=== PATIENT | male | born 1990 | race African-American/Black ===

== ENCOUNTER 2018-07-27 21:18 | Emergency (ER) | payer SELFPAY ==
[~2018-07-27] VITALS: Ht 180.3 cm; Wt 79.4 kg
[2018-07-27 21:50] VITALS: BP 114/78
--- NOTE | 2018-07-27 22:08 | RAD ---
CHEST PA LATERAL CLINICAL INDICATION: Cough COMPARISON: None FINDINGS: Heart is normal in size. Mild central bilateral peribronchial wall thickening. No focal consolidation. No pneumothorax or pleural effusion. Visualized bony thorax within normal limits. IMPRESSION: Mild bronchitis. Electronically signed by: Maurilio Majano DO (07/27/2018 10:05 PM) [facility]
[2018-07-27] MEDS ORDERED: PRED50TA PO (22:48)
[2018-07-27] MEDS ORDERED: VENTOLIN HFA18 GM INH (22:48)
[2018-07-27] MEDS ORDERED: BENZ100C PO (22:48)
--- NOTE | 2018-07-27 22:48 | PHYS DOC ---
Past Medical History Past Medical History: No Pertinent History Past Surgical History: No Surgical History Alcohol Use: None Drug Use: None Adult General Chief Complaint Chief Complaint: COUGH HPI HPI Patient is a 27 year old male with history of smoking who presents to the ED today complaining over productive cough for couple days. Denies any fever. Denies any nausea vomiting. Denies any chest pain or shortness of breath. Review of Systems Review of Systems Constitutional: Denies fever or chills [] Eyes: Denies change in visual acuity, redness, or eye pain [] HENT: Denies nasal congestion or sore throat [] Respiratory: Reports productive cough, denies shortness of breath [] Cardiovascular: No additional information not addressed in HPI [] GI: Denies abdominal pain, nausea, vomiting, bloody stools or diarrhea [] : Denies dysuria or hematuria [] Musculoskeletal: Denies back pain or joint pain [] Integument: Denies rash or skin lesions [] Neurologic: Denies headache, focal weakness or sensory changes [] All other systems were reviewed and found to be within normal limits, except as documented in this note. Allergies Allergies Allergies Coded Allergies Type Severity Reaction Last Updated Verified Penicillins Allergy Intermediate Hives 07/27/18 Yes Physical Exam Physical Exam Constitutional: Well developed, well nourished, no acute distress, non-toxic appearance. [] HENT: Normocephalic, atraumatic, bilateral external ears normal, oropharynx moist, no oral exudates, nose normal. [] Eyes: PERRLA, EOMI, conjunctiva normal, no discharge. [] Neck: Normal range of motion, no tenderness, supple, no stridor. [] Cardiovascular:Heart rate regular rhythm, no murmur [] Lungs & Thorax: Bilateral breath sounds clear to auscultation [] Abdomen: Bowel sounds normal, soft, no tenderness, no masses, no pulsatile masses. [] Skin: Warm, dry, no erythema, no rash. [] Back: No tenderness, no CVA tenderness. [] Extremities: No tenderness, no cyanosis, no clubbing, ROM intact, no edema. [] Neurologic: Alert and oriented X 3, normal motor function, normal sensory function, no focal deficits noted. [] Psychologic: Affect normal, judgement normal, mood normal. [] Current Patient Data Vital Signs Vital Signs Date Time Temp Pulse Resp B/P (MAP) Pulse Ox O2 Delivery O2 Flow Rate FiO2 07/27/18 21:50 98.6 86 17 114/78 (90) 98 Room Air 98.6 EKG EKG [] Radiology/Procedures Radiology/Procedures [] Course & Med Decision Making Course & Med Decision Making Pertinent Labs and Imaging studies reviewed. (See chart for details) This is a 27-year-old male patient presenting to the ED today complaining of a cough for couple days. Chest x-ray interpreted by radiologist was noted for bronchitis. Patient is in no distress. Symptoms are likely viral bronchitis. Discharged with albuterol inhaler, Tessalon pearls, prednisone. Encouraged to consider smoking cessation. Follow-up with the PCP in 1-2 weeks. [place] Disclaimer Dragon Disclaimer This electronic medical record was generated, in whole or in part, using a voice recognition dictation system. Departure Departure Impression: Primary Impression: Bronchitis Additional Impression: Smoking addiction Disposition: 01 HOME, SELF-CARE Condition: STABLE Referrals: NO PCP (PCP) Follow up with the primary care doctor in 1-2 weeks Patient Instructions: Acute Bronchitis, [id number], Smoking Cessation Additional Instructions: You were evaluated in the emergency room and noted to have acute bronchitis. Please consider smoking cessation, take the prescribed medications as ordered. Establish care with a primary care doctor and follow-up as an outpatient. Scripts Benzonatate (TESSALON PERLE) 100 Mg Capsule 1 CAP PO TID, #30 CAP Prov: DAVE ESCOBAR APRN 07/27/18 Albuterol Sulfate (VENTOLIN HFA INHALER) 18 Gm Hfa.aer.ad 2 PUFF INH Q4HRS for FOR ASTHMA, #1 INHALER 0 Refills Prov: DAVE ESCOBAR APRN 07/27/18 Prednisone (PREDNISONE) 50 Mg Tablet 1 TAB PO DAILY, #5 TAB Prov: DAVE ESCOBAR APRN 07/27/18 Problem Qualifiers DAVE ESCOBAR APRN July 27, 2018 22:48
== END 2018-07-27 22:55 | disposition home or self-care (01) ==
LOC: ER 21:18
DX: J40 Bronchitis, not specified as acute or chronic (principal); F17.200 Nicotine dependence, unspecified, uncomplicated; Z88.0 Allergy status to penicillin
CPT/HCPCS: 71046; 99284

== ENCOUNTER 2018-08-18 17:52 | Emergency (ER) | payer SELFPAY ==
[~2018-08-18] VITALS: Ht 180.3 cm; Wt 79.4 kg
[~2018-08-18 17:52] MED LIST: BENZ100C PO; PRED50TA PO; VENTOLIN HFA18 GM INH
[2018-08-18 18:01] VITALS: BP 123/66
[2018-08-18] MEDS ORDERED: SULF1TAB24 PO (18:31)
--- NOTE | 2018-08-18 18:31 | PHYS DOC ---
Past Medical History Past Medical History: No Pertinent History (ADRIANA ZHU APRN) Past Surgical History: No Surgical History (ADRIANA ZHU APRN) Alcohol Use: None Drug Use: None (ADRIANA ZHU APRN) Adult General Chief Complaint Chief Complaint: OTHER COMPLAINTS HPI HPI Patient is a 28 year old AA male who presents to the ER with complaints of R 4th digit pain and swelling at the distal aspect of his finger for the last 3 days. Pt denies any known injury. He denies any drainage from the site. (ADRIANA ZHU APRN) Review of Systems Review of Systems Constitutional: Denies fever or chills [] Musculoskeletal: Denies back pain or joint pain [] Integument: See HPI Neurologic: Denies headache, focal weakness or sensory changes [] (ADRIANA ZHU APRN) Allergies Allergies Allergies Coded Allergies Type Severity Reaction Last Updated Verified Penicillins Allergy Intermediate Hives 07/27/18 Yes (EFREN GOTTLIEB DO) Physical Exam Physical Exam Constitutional: Well developed, well nourished, no acute distress, non-toxic appearance. [] HENT: Normocephalic, atraumatic, bilateral external ears normal, nose normal. [] Eyes: conjunctiva normal, no discharge. [] Neck: Normal range of motion, no stridor. [] Lungs & Thorax: Respirations even and unlabored, no retractions, no respiratory distress Skin: Warm, dry; mild erythema and swelling to the distal aspect of right hand fourth digit nail bed consistent with paronychia Extremities: No cyanosis, no clubbing, ROM intact Neurologic: Alert and oriented X 3, normal motor function, normal sensory function, no focal deficits noted. [] Psychologic: Affect normal, judgement normal, mood normal. [] (ADRIANA ZHU APRN) Current Patient Data Vital Signs Vital Signs Date Time Temp Pulse Resp B/P (MAP) Pulse Ox O2 Delivery O2 Flow Rate FiO2 08/18/18 18:01 98.1 74 16 123/66 (85) 98 Room Air 98.1 (EFREN GOTTLIEB DO) EKG EKG [] (ADRIANA ZHU APRN) Radiology/Procedures Radiology/Procedures []The right fourth digit was cleansed with alcohol and a 21-gauge needle was used to lift the cuticle from the nail bed, in moderate amount of yellow pus was drained from the affected finger. No complications, patient tolerated procedure well. (ADRIANA ZHU APRN) Course & Med Decision Making Course & Med Decision Making Pertinent Labs and Imaging studies reviewed. (See chart for details) [] (ADRIANA ZHU APRN) Dragon Disclaimer Dragon Disclaimer This electronic medical record was generated, in whole or in part, using a voice recognition dictation system. (ADRIANA ZHU APRN) Departure Departure Impression: Primary Impression: Paronychia of finger of right hand Disposition: HOME, SELF-CARE Condition: STABLE Patient Instructions: Paronychia, [id number] Additional Instructions: Fill the prescription and use as directed. Recommend warm Epson salt soaks 3 times a day and as needed. He may take Tylenol or ibuprofen as needed for pain. Follow up with your primary care doctor if symptoms persist, return to the ER if symptoms worsen. Scripts Sulfamethoxazole/Trimethoprim (BACTRIM DS TABLET) 1 Each Tablet 1 TAB PO BID, #14 TAB 0 Refills Prov: ADRIANA ZHU APRN 08/18/18 Attending Signature Attending Signature I have reviewed the PA/ELECTRICAL AND INSTRUMENTATION MANAGER's note and plan of care. I was available for consultation as needed during the patient's visit in the emergency department. I agree with the clinical impression, plan, and disposition. (EFREN GOTTLIEB DO) ADRIANA ZHU APRN Aug 18, 2018 18:31 EFREN GOTTLIEB DO Aug 18, 2018 22:18
== END 2018-08-18 18:44 | disposition home or self-care (01) ==
LOC: ER 17:52
DX: L03.011 Cellulitis of right finger (principal); Z88.0 Allergy status to penicillin
CPT/HCPCS: 99283